=== PATIENT | female | born 1955 | race Native Hawaiian/Other Pacific Islander ===

== ENCOUNTER 2016-10-18 09:56 | Outpatient (CLI) | payer BC | END 2016-10-18 19:06 | disposition home or self-care (01) | LOC: MAMMO 09:56 | DX: Z12.31 Encounter for screening mammogram for malignant neoplasm of breast (principal) | CPT/HCPCS: G0202-TC ==

== ENCOUNTER 2016-10-25 09:02 | Outpatient (CLI) | payer BC | END 2016-10-25 19:08 | disposition home or self-care (01) | LOC: US 09:02 | DX: R10.11 Right upper quadrant pain (principal); M54.5 Low back pain; M54.2 Cervicalgia ==

== ENCOUNTER 2017-01-27 08:51 | Outpatient (CLI) | payer BC | END 2017-01-27 18:57 | disposition home or self-care (01) | LOC: MRI 08:51 | DX: M54.17 Radiculopathy, lumbosacral region (principal) ==

== ENCOUNTER 2020-02-01 11:34 | Outpatient (CLI) | payer OTHER, MEDICARE | END 2020-02-01 19:11 | disposition home or self-care (01) | LOC: RAD 11:34 | DX: Z13.820 Encounter for screening for osteoporosis (principal); Z12.31 Encounter for screening mammogram for malignant neoplasm of breast; N95.8 Other specified menopausal and perimenopausal disorders ==

== ENCOUNTER 2020-12-13 12:55 | Outpatient (CLI) | payer OTHER, MEDICARE ==
[2020-12-13 13:15] LABS: PLATELET COUNT 254 K/uL (152-353)
[2020-12-13 13:24] LABS: POTASSIUM 4.1 mmol/L (3.6-5.2)
== END 2020-12-13 19:13 | disposition home or self-care (01) ==
LOC: LABW 12:55
PROVIDERS: ATTEND Internal Medicine Cardiovascular Disease
DX: E78.5 Hyperlipidemia, unspecified (principal); Z79.899 Other long term (current) drug therapy
CPT/HCPCS: 36415; 80053; 80061; 83880; 85027

== ENCOUNTER 2020-12-25 16:25 | Emergency (ER) | payer OTHER, MEDICARE ==
[~2020-12-25] VITALS: Ht 165.1 cm; Wt 79.8 kg
[2020-12-25 16:56] VITALS: TEMP 98.6
[2020-12-25 18:01] VITALS: BP 126/66
== END 2020-12-25 17:57 | disposition home or self-care (01) ==
LOC: ED 16:25
PROC: 0HQFXZZ Repair Right Hand Skin, External Approach (ICD-10-PCS; principal; 2020-12-25)
DX: S61.212A Laceration without foreign body of right middle finger without damage to nail, initial encounter (principal); W25.XXXA Contact with sharp glass, initial encounter; Y93.G1 Activity, food preparation and clean up; Y92.89 Other specified places as the place of occurrence of the external cause
CPT/HCPCS: 90471; 90715; 99283

== ENCOUNTER 2022-03-12 12:44 | Outpatient (CLI) | payer OTHER, MEDICARE | END 2022-03-12 20:16 | disposition home or self-care (01) | LOC: MAMMO 12:44 | PROVIDERS: ATTEND Registered Nurse | DX: N63.11 Unspecified lump in the right breast, upper outer quadrant (principal) | CPT/HCPCS: G0279 ==

== ENCOUNTER → 2022-04-07 | Emergency (ER) | payer OTHER, MEDICARE ==
[~2022-04-07] VITALS: Ht 165.1 cm; Wt 79.8 kg
[2022-04-07 20:40] VITALS: BP 141/75; TEMP 99.3
== END ==
LOC: ED 20:27
DX: J44.1 Chronic obstructive pulmonary disease with (acute) exacerbation (principal); U07.1 COVID-19
CPT/HCPCS: 87502; 87635; 94664; 96372; 99283; J2930; U0003

== ENCOUNTER 2022-04-09 13:03 | Emergency (ER) | payer OTHER, MEDICARE ==
[~2022-04-09] VITALS: Ht 165.1 cm; Wt 74.4 kg
[2022-04-09 13:10] VITALS: TEMP 98.8
[2022-04-09 14:29] LABS: PLATELET COUNT 241 K/uL (152-353)
[2022-04-09 14:57] LABS: PARTIAL THROMBOPLASTIN TIME 35.2 SECONDS (24.5-33.6)
[2022-04-09 16:00] VITALS: BP 100/62
== END 2022-04-09 16:04 | disposition home or self-care (01) ==
LOC: ED 13:03
PROVIDERS: Emergency Medicine
DX: U07.1 COVID-19 (principal); R06.02 Shortness of breath; Z95.5 Presence of coronary angioplasty implant and graft
CPT/HCPCS: 80053; 83880; 84484; 85027; 85379; 85610; 85730; 93005; 99282

== ENCOUNTER 2022-04-24 11:24 | Outpatient (CLI) | payer OTHER | END 2022-04-24 19:17 | disposition home or self-care (01) | LOC: US 11:24 | PROVIDERS: ATTEND Nurse Practitioner Family | DX: G89.29 Other chronic pain (principal) ==

== ENCOUNTER 2022-11-20 10:15 | Outpatient (CLI) | payer OTHER | END 2022-11-20 19:06 | disposition home or self-care (01) | LOC: RAD 10:15 | PROVIDERS: ATTEND Nurse Practitioner Family | DX: Z13.820 Encounter for screening for osteoporosis (principal); N95.8 Other specified menopausal and perimenopausal disorders ==